=== PATIENT | female | born 1960 | race Two or more races ===

== ENCOUNTER → 2016-09-29 | Outpatient (CLI) | payer OTHER ==
--- NOTE | 2016-09-29 10:39 | RAD ---
Three-view right shoulder study History: Right shoulder pain and crepitus for one year. No known injury. Findings: No acute fracture or dislocation or osteolytic process is seen. The glenohumeral joint is unremarkable. No AC joint separation is seen. The AC joint is unremarkable. Old healed right seventh rib fracture is seen. IMPRESSION: No significant osseous abnormality of the right shoulder is seen.
== END | disposition home or self-care (01) ==
LOC: DXRADRC 09:41
PROVIDERS: ATTEND General Practice
DX: M24.811 Other specific joint derangements of right shoulder, not elsewhere classified (principal)
CPT/HCPCS: 73030